=== PATIENT | female | born 1950 | race Caucasian/White ===

== ENCOUNTER 2021-11-15 01:01 | Day surgery (SDC) | payer OTHER, SELFPAY ==
--- NOTE | 2021-11-12 09:30 | PC.NURSE ---
Report to the Outpatient Waiting Room, entrance under the green pavilion located off [facility], at time _0945 on date . OR Time: __1145 . - You and your visitor will be asked a series of questions to screen for COVID 19 for your protection. - Only one visitor is allowed at this time. - The patient visitor is requested to leave or wait in car when not with patient. - A mask is required within the hospital. Patients may have clear liquids (water, carbonated beverages, clear teas, apple juice) until 3 hours prior to surgery with a maximum of 20 ounces. - No food from midnight until time of surgery - Infants may have breast milk until 4 hours before surgery, formula 6 hours prior to surgery. - Children will be allowed to drink immediately following surgery. If applicable, please bring a bottle or sippy cup to assist with drinking. Juice, water, soda, and popsicles are readily available. For infants on formula, please bring formula the day of surgery. Pacifiers are allowed. Take the following medications with a SIP of water the morning of surgery: __NONE Medications to discontinue per physician ALL VITAMINS AND SUPPLEMENTS 3 DAYS PRE OP Date to take last dose____11/11/21 Please no make-up, nail pakistani, hairspray, perfume, deodorant, or body powder the day of surgery. No jewelry (including any body piercings) or valuables the day of surgery, leave them at home. Please take a shower or bath the night before, or the morning of, surgery with an antibacterial soap. Wear comfortable, loose fitting clothing. Children are encouraged to wear pajamas. - Jewelry must be removed prior to entering the operating room. Rings and piercings that are not removed may be cut off. - The hospital will not accept responsibility for valuables. - Please leave all valuables, including medications, at home the day of surgery. If you are going home after surgery, a licensed log driver must drive you home. - NO public transportation without another adult. - We recommend that an adult stay with you for 24 hours following discharge. - We also recommend that you do not drive, make important decision, drink alcoholic beverages, or take any drugs that were not prescribed by your health care provider for at least 24 hours after your discharge time. For Pediatric surgeries, we recommend two adults accompany the child home (only one inside the building at this time). Follow any additional instructions given to you from your surgeon. If you or anyone in your household have experienced Covid symptoms in the past week, please notify your surgeon or the nurse liaison at the phone number below for possible testing. Telephone instructions given toPATIENT and asked if any additional questions and then verbalized understanding. Patient advised to call surgeon office or pre surgery nurse liaison [phone] if any additional questions.
[2021-11-12 09:37] VITALS: BMI 36.0
--- NOTE | 2021-11-15 08:01 | P.HP_ITS ---
History of Present Illness History of Present Illness Consent: Risks, benefits, and alternatives have been discussed and questions answered. Patient agrees to proceed with procedure. Chief complaint: post menopausal bleeding Narrative: Maritza Viveros is a 71 year old female with on and off spotting for several months. Patient was referred by her PCP who had completed an ultrasound revealing a thickened endometrium 11.6mm in addition the patient has a 1cm fib roid noted on ultrasound. Was recommended to proceed with D&C hysteroscopy. Patient was given Cytotec due to history of LEEP to help enter the endometrial cavity. Of infection, bleeding, perforation, and possible pathology were reviewed. Patient voiced understanding and agrees to proceed. The patient does have medical clearance from her PCP. Review of Systems Review of Systems: All systems reviewed & are unremarkable except as noted in HPI and below (HPI) [facility] Past Medical History Medical History (Updated 11/15/21 @ 08:07 by Naty Tee MD) Cardiomyopathy Chronic renal disease, stage III Depression HTN (hypertension) Mitral valve prolapse (normal spontaneous vaginal delivery) Surgical History Surgical History (Updated 11/15/21 @ 08:04 by Naty Tee MD) H/O LEEP History of myomectomy Social History Social History Smoking status: Never smoker Living arrangements: alone Spiritual care concerns: No Meds Home Medications and Allergies Home Medications Medication Instructions Recorded Confirmed Type cholecalciferol (vitamin D3) 50 50 mcg PO DAILY 11/12/21 11/12/21 History mcg (2,000 unit) tablet cyanocobalamin (vitamin B-12) 1,000 mcg PO DAILY 11/12/21 11/12/21 History 1,000 mcg tablet misoprostol 200 mcg tablet 5 tablet PO QPM 11/12/21 11/12/21 History multivitamin 1 tablet PO DAILY 11/12/21 11/12/21 History valsartan 80 1 tablet PO DAILY 11/12/21 11/12/21 History mg-hydrochlorothiazide 12.5 mg tablet vitamin B complex 1 cap PO DAILY 11/12/21 11/12/21 History vitamin E 400 unit tablet 400 unit PO DAILY 11/12/21 11/12/21 History Allergies Allergy/AdvReac Type Severity Reaction Status Date / Time No Known Allergies Allergy Verified 11/12/21 09:16 Exam Const: General: healthy appearing and alert Orientation/consciousness: patient oriented x3 GI: GI Palp: Yes Soft to palpation, No Tenderness to palpation present (GI) and No Palpable mass present : External Female Exam: normal external appearance Speculum Exam - Vagina: normal appearance of the vagina, vagina atrophic and vaginal bleeding Speculum Exam - Cervix: normal appearance of the cervix Bimanual exam- vagina & uterus: uterine size normal and consistency normal Bimanual Exam- Adnexa, other: normal adnexae and No adnexal tenderness Neuro: General: patient oriented x3 Assessment and Plan Assessment and plan (1) Post-menopausal bleeding: Code(s): N95.0 - Postmenopausal bleeding Status: Acute Assessment and Plan: The patient has a thickened endometrium. We will proceed with a D&C hysteroscopy.
--- NOTE | 2021-11-15 08:01 | WPDHPUPDATE1 ---
History and Physical Update Update Date/Time: 11/15/21 08:01 History and Physical has been reviewed, including an updated exam of the patient. There are NO changes in the patient's condition. Risks, benefits, and alternatives have been discussed and questions answered. Patient agrees to proceed with procedure.
[2021-11-15] MEDS: LACTATED RINGERS 1,000 ML 30 ML IV CONT (10:00)
--- NOTE | 2021-11-15 10:20 | WPDANESEPPF ---
Anes - Initial Pre Proc Eval Procedure: Operation Date: 11/15/21 11:45 Proposed Procedures p Hysteroscopy, Dilation and Curettage - Naty Tee MD Date/Time: 11/15/21 10:20 Surgeon: Naty Tee MD Pre Op Diagnosis: post menopausal bleeding Patient Data Age: 71 Gender: F Height: 1.63 m Weight: 95.3 kg Allergies Allergy/AdvReac Type Severity Reaction Status Date / Time No Known Allergies Allergy Verified 11/12/21 09:16 Home Medications Medication Instructions Recorded Confirmed Type cholecalciferol (vitamin D3) 50 50 mcg PO DAILY 11/12/21 11/12/21 History mcg (2,000 unit) tablet cyanocobalamin (vitamin B-12) 1,000 mcg PO DAILY 11/12/21 11/12/21 History 1,000 mcg tablet misoprostol 200 mcg tablet 5 tablet PO QPM 11/12/21 11/12/21 History multivitamin 1 tablet PO DAILY 11/12/21 11/12/21 History valsartan 80 1 tablet PO DAILY 11/12/21 11/12/21 History mg-hydrochlorothiazide 12.5 mg tablet vitamin B complex 1 cap PO DAILY 11/12/21 11/12/21 History vitamin E 400 unit tablet 400 unit PO DAILY 11/12/21 11/12/21 History Patient hx anesthesia problems: none Family hx anesthesia problems: none Results Review: All pre-operative results and documents have been reviewed as part of the pre-operative evaluation. [facility] Past Medical History Medical History Cardiomyopathy Chronic renal disease, stage III Depression HTN (hypertension) Mitral valve prolapse (normal spontaneous vaginal delivery) Surgical History Surgical History H/O LEEP History of myomectomy Social History Social History Smoking status: Never smoker Living arrangements: alone Spiritual care concerns: No Anes - Eval Final PreProcedure Day of Procedure 11/15/21 10:20 Patient weight: obese Heart: regular rate and rhythm Lungs: decreased breath sounds Airway: Mallampati scale class II Neurological: alert and oriented Last oral intake: >/= 8 hours ASA classification: III Emergent: no Anesthetic plan: proceed Anesthesia type and monitoring: general GIVS and standard monitoring Results Review: All pre-operative results and documents have been reviewed as part of the pre-operative evaluation. Informed Consent: The patient's anesthetic plan and its attendant risks and benefits were discussed with the patient/family/POA. Questions were solicited and answers provided to the satisfaction of the patient/family/POA.
[2021-11-15 10:59] LABS: Anion Gap 8 mmol/L (8-16); Blood Urea Nitrogen 15 mg/dL (7-17); Calcium 9.4 mg/dL (8.4-10.2); Carbon Dioxide 29 mmol/L (22-30); Chloride 103 mmol/L (98-107); Estimated CRCL calculation 53 ml/min; Estimated Glomerular Filt Rate 55; Glucose 126 mg/dL (65-110); Potassium 3.3 mmol/L (3.4-5.0); Sodium 140 mmol/L (137-145)
[2021-11-15 11:00] VITALS: BP 148/78; PULSE 80; RESP 16; TEMP 37.1; O2SAT 100
[2021-11-15] MEDS: LIDOCAINE HCL 1% PF 30 ML VIAL 10 ML INFILTRATE (11:11)
[2021-11-15 11:23] VITALS: BP 94/61; PULSE 85; RESP 18; O2SAT 96
--- NOTE | 2021-11-15 11:24 | W.PM.PROC2 ---
Procedure Note - Detailed Date of Procedure 11/15/21 Pre-op Diagnosis post menopausal bleeding Post-op Diagnosis Same Procedure Performed D&C hysteroscopy with MyoSure resection of polyp Surgeon Naty Tee MD Anesthesia MAC and Local Findings Uterus sounds to 8cm. Large endometrial polyp. Remainder of endometrium appears grossly atrophic. Description of Procedure The patient is taken to the operating room and placed under anesthesia in the dorsal lithotomy position. She was prepped and draped in the usual sterile fashion. [place] speculum was placed in the vagina and the cervix grasped on the anterior lip with a tenaculum. The cervix is injected in each quadrant with 1% lidocaine. The uterus is sounded to 8cm. The cervix is serially dilated to an 8 Hegar. The diagnostic hysteroscope was placed with the above-stated findings. The MyoSure scope and device are opened and under direct visualization the polyp was removed in its entirety. The hysteroscope was removed and the medium sharp curette used to curette the endometrium until a good uterine cry was noted in all areas. Minimal materials obtained consistent with the atrophic appearance. All instruments are removed. Sponge, needle, and instrument counts are correct per the OR staff. Patient is awakened from anesthesia and taken to recovery in stable condition. Estimated Blood Loss 5 Drains No Packing No Pathology Yes (Endometrial curettings and shavings) Complications No immediate complications Condition Stable Disposition PACU
[2021-11-15 11:50] VITALS: BP 128/75; PULSE 84; RESP 16; O2SAT 95
[2021-11-15 12:20] VITALS: BP 114/75; PULSE 84; RESP 16
== END 2021-11-15 12:29 | disposition home or self-care (01) ==
PROVIDERS: Anesthesiology; PCP Family Medicine; Visit Provider Obstetrics & Gynecology Gynecology
PROC: 0U5B8ZZ Destruction of Endometrium, Via Natural or Artificial Opening Endoscopic (ICD-10-PCS; CPT 58563; principal; 2021-11-15 11:45)
DX: N95.0 Postmenopausal bleeding (principal); N84.0 Polyp of corpus uteri; I10 Essential (primary) hypertension; I12.9 Hypertensive chronic kidney disease with stage 1 through stage 4 chronic kidney disease, or unspecified chronic kidney disease; N18.30 Chronic kidney disease, stage 3 unspecified; I42.9 Cardiomyopathy, unspecified; I34.1 Nonrheumatic mitral (valve) prolapse; E66.9 Obesity, unspecified; Z68.35 Body mass index [BMI] 35.0-35.9, adult; Z79.899 Other long term (current) drug therapy
CPT/HCPCS: 58558; 36415; 80048; 88305; A9270; J2704; J3010; J7030; J7120